=== PATIENT | male | born 1960 | race Caucasian/White ===

== ENCOUNTER 2023-10-04 12:37 | Outpatient (CLI) | payer OTHER, MEDICARE ==
[2023-10-04 13:14] LABS: ALBUMIN 3.6 g/dL (3.4-4.8); CALCIUM 8.9 mg/dL (8.4-11.0); CREATININE 1.01 mg/dL (0.55-1.30); POTASSIUM 4.3 mmol/L (3.5-5.1); TOTAL BILIRUBIN 0.7 mg/dL (0.0-1.0); TOTAL PROTEIN, SERUM 7.2 g/dL (6.4-8.3)
== END 2023-10-04 18:27 | disposition home or self-care (01) ==
LOC: SLB 12:37
PROVIDERS: ATTEND Internal Medicine Cardiovascular Disease
DX: E78.5 Hyperlipidemia, unspecified (principal); I10 Essential (primary) hypertension
CPT/HCPCS: 36415; 80053; 80061

== ENCOUNTER 2023-12-04 13:53 | Outpatient (CLI) | payer OTHER, MEDICARE ==
[2023-12-04 14:24] LABS: CALCIUM 9.2 mg/dL (8.4-11.0); CREATININE 0.93 mg/dL (0.55-1.30); POTASSIUM 3.7 mmol/L (3.5-5.1); TOTAL PROTEIN, SERUM 7.5 g/dL (6.4-8.3)
[2023-12-04 21:28] LABS: CHOLESTEROL 155 mg/dL (<200); HDL CHOLESTEROL 48 mg/dL (>45); TRIGLYCERIDES 140 mg/dL (30-150)
== END 2023-12-04 18:54 | disposition home or self-care (01) ==
LOC: SLB 13:53
PROVIDERS: ATTEND Internal Medicine Cardiovascular Disease
DX: E78.5 Hyperlipidemia, unspecified (principal)
CPT/HCPCS: 36415; 80053; 80061